=== PATIENT | female | born 1995 | race Asian ===

== ENCOUNTER 2021-03-12 06:14 | Day surgery (SDC) | payer OTHER ==
[~2021-03-12] VITALS: Ht 165.1 cm; Wt 67.1 kg
[2021-03-12] VITALS (8 sets, daily range): BP systolic 100–104; BP diastolic 56–59
[2021-03-12] MEDS ORDERED: LR 1,000 ML IV ONE (06:20)
[2021-03-12] MEDS ORDERED: ceFAZolin SOD 2 GM in IV 1 EA IV ONE (06:20)
[2021-03-12] MEDS ORDERED: MIDAZOLAM INJ 2MG/2ML VIAL (J2250 PER 1MG) As Ordered ONE (06:52)
[2021-03-12] MEDS ORDERED: fentaNYL 250 MCG/5 ML INJECTION (J3010) As Ordered ONE (06:52)
[2021-03-12] MEDS ORDERED: dexameTHASONE 4 MG/ML 1ML VIAL (J1100 PER 1MG) As Ordered ONE (06:53)
[2021-03-12] MEDS ORDERED: KETOROLAC 60MG 2ML VIAL As Ordered ONE (06:53)
[2021-03-12] MEDS ORDERED: ROCURONIUM BROMIDE 50 MG/5 ML VIAL As Ordered ONE ×2 (06:53→08:46)
[2021-03-12] MEDS ORDERED: ONDANSETRON 4MG/2ML VIAL As Ordered ONE (06:53)
[2021-03-12] MEDS ORDERED: SUGAMMADEX SODIUM 500 MG/5 ML VIAL (BRIDION) As Ordered ONE (06:53)
[2021-03-12] MEDS ORDERED: propofoL 200 MG/20 ML VIAL As Ordered ONE (06:53)
[2021-03-12] MEDS ORDERED: LIDOCAINE 2% 100MG/5ML SDV (FOR ANES.) As Ordered ONE (06:57)
[2021-03-12 06:58] LABS: HEMATOCRIT 40.1 % (36.0-47.0); HEMOGLOBIN 12.7 g/dl (12.0-15.5); MEAN CORPUSCULAR HEMOGLOBIN 27.8 pg (27.0-33.0); MEAN CORPUSCULAR HGB CONC 31.7 g/dl (32.0-36.5); MEAN CORPUSCULAR VOLUME 87.7 fl (80.0-96.0); PLATELET COUNT, AUTOMATED 286 10^3/uL (150-450); RED BLOOD COUNT 4.57 10^6/uL (4.00-5.40); WHITE BLOOD COUNT 5.3 10^3/uL (4.0-10.0)
[2021-03-12] MEDS ORDERED: SILVER NITRATE APPLICATOR As Ordered ONE (07:06)
[2021-03-12] MEDS ORDERED: METHYLENE BLUE 0.5% (5MG/ML) 10 ML AMP (PROVAYBLUE) As Ordered ONE (07:07)
[2021-03-12] MEDS ORDERED: BUPIVACAINE HCL 0.5% 30 ML VIAL As Ordered ONE (07:07)
[2021-03-12 07:16] LABS: HCG, SERUM QUALITATIVE NEGATIVE (NEGATIVE)
[2021-03-12 07:18] LABS: BLOOD UREA NITROGEN 14 MG/DL (7-18); CALCIUM LEVEL 8.7 MG/DL (8.5-10.1); CARBON DIOXIDE LEVEL 28 MEQ/L (21-32); CHLORIDE LEVEL 109 MEQ/L (98-107); GLOMERULAR FILTRATION RATE > 60.0 (>60); GLUCOSE, FASTING 92 MG/DL (70-100); POTASSIUM SERUM 3.7 MEQ/L (3.5-5.1); SODIUM LEVEL 144 MEQ/L (136-145)
[2021-03-12] MEDS ORDERED: ACETAMINOPHEN 1000MG 100ML IV BTL (OFIRMEV) (J0131 PER 10MG) As Ordered ONE (07:55)
[2021-03-12] MEDS ORDERED: PROMETHAZINE 25 MG TAB PO PRN (10:00)
[2021-03-12] MEDS ORDERED: MORPHINE 2 MG/ML 1ML VIAL (J2270) IV PRN (10:05)
[2021-03-12] MEDS ORDERED: ACETAMINOPHEN 500 MG TAB PO PRN (10:05)
[2021-03-12] MEDS ORDERED: DOCUSATE SODIUM 100MG CAPSULE PO PRN (10:05)
[2021-03-12] MEDS ORDERED: SIMETHICONE 80MG CHEW TAB PO PRN (10:05)
[2021-03-12] MEDS ORDERED: ONDANSETRON 4 MG ORAL DISINTEGRATING TAB PO PRN (10:05)
[2021-03-12] MEDS ORDERED: oxyCODONE 5MG TAB PO PRN ×2 (10:05→10:50)
[2021-03-12] MEDS ORDERED: HYDROMORPHONE HCL 0.5 MG/ 0.5 ML SYRINGE (J1170 PER 1) IV PRN (10:50)
[2021-03-12] MEDS ORDERED: fentaNYL 100 MCG/2 ML INJECTION (J3010) IV PRN (10:50)
[2021-03-12] MEDS ORDERED: MEPERIDINE INJ 25 MG/ML VIAL (J2175) IV PRN (10:50)
[2021-03-12] MEDS ORDERED: PROMETHAZINE INJ 25 MG/ML VIAL (J2550) IV PRN (10:50)
[2021-03-12] MEDS ORDERED: ONDANSETRON 4MG/2ML VIAL IV PRN (10:50)
[2021-03-12] MEDS ORDERED: LR 1,000 ML IV SCH (10:50)
[2021-03-12] MEDS ORDERED: METOCLOPRAMIDE INJ 10MG/2ML VIAL (J2765 PER 1) IV PRN (10:50)
[2021-03-12] MEDS: LR 1,000 ML IV SCH ×2 (12:09→18:00)
[2021-03-12] MEDS: KETOROLAC 30 MG/ML 1ML VIAL IV SCH ×2 (14:03→20:28)
[2021-03-13] MEDS: LR 1,000 ML IV SCH ×4 (01:12→23:29)
[2021-03-13] MEDS: KETOROLAC 30 MG/ML 1ML VIAL IV SCH ×2 (02:08→07:55)
[2021-03-13 02:09] VITALS: BP 99/55
[2021-03-13 05:29] VITALS: BP 108/63
[2021-03-13 06:48] LABS: BASO % 0.1 % (0.0-1.0); EOS % 0.1 % (0.0-3.0); HEMATOCRIT 29.9 % (36.0-47.0); LYMPH # 2.6 10^3/uL (1.5-5.0); LYMPH % 36.4 % (24.0-44.0); MEAN CORPUSCULAR HEMOGLOBIN 28.4 pg (27.0-33.0); MEAN CORPUSCULAR HGB CONC 32.8 g/dl (32.0-36.5); MEAN CORPUSCULAR VOLUME 86.7 fl (80.0-96.0); MONO # 0.6 10^3/uL (0.0-0.8); MONO % 9.1 % (2.0-8.0); NEUTROPHILS # 3.8 10^3/uL (1.5-8.5); PLATELET COUNT, AUTOMATED 225 10^3/uL (150-450); RED BLOOD COUNT 3.45 10^6/uL (4.00-5.40); WHITE BLOOD COUNT 7.1 10^3/uL (4.0-10.0)
[2021-03-13 06:51] LABS: HEMOGLOBIN 9.8 g/dl (12.0-15.5)
[2021-03-13 07:11] LABS: BLOOD UREA NITROGEN 10 MG/DL (7-18); CARBON DIOXIDE LEVEL 27 MEQ/L (21-32); CHLORIDE LEVEL 109 MEQ/L (98-107); CREATININE FOR GFR 0.61 MG/DL (0.55-1.30); GLOMERULAR FILTRATION RATE > 60.0 (>60); GLUCOSE, FASTING 91 MG/DL (70-100); POTASSIUM SERUM 3.7 MEQ/L (3.5-5.1); SODIUM LEVEL 144 MEQ/L (136-145)
[2021-03-13 10:00] VITALS: BP 106/57
[2021-03-13 12:11] LABS: HEMATOCRIT 30.8 % (36.0-47.0); HEMOGLOBIN 9.9 g/dl (12.0-15.5); MEAN CORPUSCULAR HEMOGLOBIN 28.2 pg (27.0-33.0); MEAN CORPUSCULAR HGB CONC 32.1 g/dl (32.0-36.5); MEAN CORPUSCULAR VOLUME 87.7 fl (80.0-96.0); PLATELET COUNT, AUTOMATED 225 10^3/uL (150-450); RED BLOOD COUNT 3.51 10^6/uL (4.00-5.40); WHITE BLOOD COUNT 6.3 10^3/uL (4.0-10.0)
[2021-03-13 14:00] VITALS: BP 108/58
[2021-03-13] MEDS: oxyCODONE 5MG TAB PO PRN (15:01)
[2021-03-13] MEDS: IBUPROFEN 800 MG TAB PO SCH ×2 (16:36→23:28)
[2021-03-13 21:00] VITALS: BP 97/58
[2021-03-14] MEDS: oxyCODONE 5MG TAB PO PRN (00:33)
[2021-03-14 05:43] VITALS: BP 99/60
[2021-03-14] MEDS ORDERED: IBUP80TA PO (07:45)
[2021-03-14] MEDS ORDERED: OXYC-517 PO (07:45)
[2021-03-14] MEDS ORDERED: ACET-683 PO (07:45)
[2021-03-14] MEDS: IBUPROFEN 800 MG TAB PO SCH (08:11)
== END 2021-03-14 11:40 | disposition home or self-care (01) ==
LOC: UNDOADMIN 06:14 → M SDC 06:14 → M OR 06:14 → EDSTATUS 07:30 → M MSPAV 11:15 → M OR 11:15 → M MSPAV 11:15 → UNDODISIN 03-14 11:40 → M SDC 03-14 11:40
PROVIDERS: ATTEND Obstetrics & Gynecology
PROC: 0UB14ZX Excision of Left Ovary, Percutaneous Endoscopic Approach, Diagnostic (ICD-10-PCS; principal; 2021-03-12 07:30)
PROC: 0UT64ZZ Resection of Left Fallopian Tube, Percutaneous Endoscopic Approach (ICD-10-PCS; 2021-03-12 07:30)
DX: N83.202 Unspecified ovarian cyst, left side (principal); Z79.899 Other long term (current) drug therapy
CPT/HCPCS: 36415; 80048; 84703; 85025; 85027; 86850; 86900; 86901; 88108; 88305; J0131; J0690; J1100; J1885; J2250; J2405; J3010; Q9968